=== PATIENT | male | born 2000 | race Asian ===

== ENCOUNTER 2019-04-26 07:45 | Outpatient (CLI) | payer OTHER ==
[~2019-04-26] VITALS: Ht 177.8 cm; Wt 78.2 kg
[2019-04-26 08:15] VITALS: BP 118/75; PULSE 62; TEMP 98.3
[2019-04-26] MEDS ORDERED: TOPROL XL 25MG25 MG PO (09:53)
[2019-04-26 10:05] VITALS: BP 117/86; PULSE 58; TEMP 98
[2019-04-26 10:25] VITALS: BP 117/72; PULSE 65; TEMP 98
--- NOTE | 2019-04-26 10:33 | NUR ---
INT discontinued intact. Discharge instructions given. Transferred to private car by [email or web address]
== END 2019-04-26 10:30 | disposition home or self-care (01) ==
LOC: COL.CAR 07:45
DX: R55 Syncope and collapse (principal)